=== PATIENT | female | born 1995 | race Asian ===

== ENCOUNTER 2019-03-01 08:09 | Inpatient (IN) ==
--- NOTE | 2019-03-01 09:08 | Emergency Department Note ---
ED Provider Note CHIEF COMPLAINT: Bilateral leg weakness/numbness HISTORY OF PRESENTING ILLNESS: This is a 23-year-old female who presents to the emergency department via EMS with complaint of bilateral leg weakness and numbness. Patient states that she has had pain off and on in the legs for several months, but started having numbness in the legs about a month ago and started having progressive weakness in the legs about a week ago. She states for the past few days she has not been able to walk because of the weakness and has been crawling on the floor to go to the bathroom and has not been leaving her apartment. The patient admits to using whippets, she states that she has been using these off and on for the past 2 years but has been using them more frequently over the past 6 months. She states she uses these 3-4 times a week and uses anywhere from 20-100 at a time. She denies any other recreational drug use. She reports regular alcohol use, noting that she drinks on the weekends and on Tuesday nights and states "I drink until I feel happy." She denies any fevers or chills or feeling ill. She denies any recent illness. She denies any headaches, vision changes, neck pain, back pain, numbness/tingling or weakness of the upper extremities. She denies any chest pain, abdominal pain, shortness of breath, nausea or vomiting, urinary complaints, or unusual rash. She denies any bowel or bladder dysfunction and denies any saddle numbness. She did have similar symptoms at a previous ED visit in October, and reports her symptoms have come and gone since that time but have gotten worse over the past 1 month. REVIEW OF SYSTEMS: A complete 10 point review of systems was reviewed with the patient with pertinent positives and negatives as per history of present illness. All else were negative. PAST MEDICAL HISTORY: History of depression SOCIAL HISTORY: Lives at home, she is a [employer] student, occasional smoker, regular alcohol use, regular use of whippets, denies any other recreational drug use ALLERGIES: No known allergies PHYSICAL EXAM: CONSTITUTIONAL: Pleasant and cooperative. Nontoxic-appearing and in no acute distress. Disheveled and unkempt, dirt on hands, knees, and feet. Mildly dehydrated. HEENT: Normocephalic, atraumatic. PERRL, EOMI with no nystagmus. TMs normal. Pharynx normal. Airway patent. NECK: Supple, full active range of motion without discomfort. No nuchal rigidity or meningismus. No midline tenderness to palpation of the cervical spine. No cervical adenopathy. RESPIRATORY: Clear to auscultation bilaterally with no wheezing, crackles, rhonchi or stridor. Equal expansion bilaterally. CARDIOVASCULAR: Regular rate and rhythm with no murmurs, rubs or gallops. Normal peripheral perfusion. No edema. GASTROINTESTINAL: Soft, nontender, nondistended. No palpable masses or HSM. Bowel sounds present in all quadrants. No CVA tenderness bilaterally. MUSCULOSKELETAL: 5/5 strength in the bilateral upper extremities, sensation intact to light touch throughout the upper extremities. 4/5 strength in the bilateral lower extremities, able to lift legs off of the bed, but poor control of the leg while lifted. Dorsiflexion and plantarflexion intact. No significant muscle spasticity or flaccidity noted. No clonus. Patellar and Achilles deep tendon reflexes 2+ bilaterally. INTEGUMENTARY: No rash or other significant dermatologic conditions noted. NEUROLOGIC: Alert and oriented X 4 with normal affect. Cranial nerves II-XII grossly intact, no facial droop. No pronator drift. Rksfsv-kuja-odxory testing normal. Unable to perform [id number]-id-vukt bilaterally. Unable to assess Romberg due to ataxia. Patient is unable to walk. Normal speech. ED COURSE AND MEDICAL DECISION MAKING: CC: Patient presenting with complaint of bilateral leg weakness/numbness DIFFERENTIAL DIAGNOSIS: Includes, but not limited to spinal cord lesion, cauda equina syndrome, vitamin B12 deficiency, myelopathy, neuropathy, cerebellar mass/lesion, substance abuse, nitrous oxide toxicity, Guillon Marks, among others. INTERPRETATION OF LABS: No leukocytosis, mild anemia, normal platelets, no significant electrolyte abnormalities, elevated BUN with a normal creatinine, normal liver enzymes. Folate within normal limits. TSH within normal limits. Vitamin B12 level is low. Serum negative. Medical alcohol negative. Acetaminophen and salicylate levels negative. Urinalysis and urine drug screen pending. IMAGING: XR chest 1V portable CLINICAL HISTORY: 23 years-old Female presenting with psych eval. TECHNIQUE: Portable upright AP view of the chest was obtained. COMPARISON: None. FINDINGS: Cardiomediastinal silhouette normal. No focal opacity. No large effusion or pneumothorax. Osseous structures normal. Upper abdomen normal. IMPRESSION: 1. No acute cardiopulmonary disease. ----- MR lumbar spine wo con HISTORY: Pain. Neuropathy. bilateral leg weakness and numbness TECHNIQUE: Multiplanar multisequence MRI of the lumbar spine was performed without the use of contrast. COMPARISON: None. FINDINGS: For the purpose of the report the L5-S1 disc space will be located on axial image 23 of 25. Severely limited exam due to patient motion. Unremarkable signal characteristics of the vertebral bodies. Intervertebral discs appear generally well preserved. L1-L2: No significant central canal or neural foraminal narrowing. L2-L3: No significant central canal or neural foraminal narrowing. L3-L4: No significant central canal or neural foraminal narrowing. L4-L5: No significant central canal or neural foraminal narrowing. L5-S1: No significant central canal or neural foraminal narrowing. IMPRESSION: 1. Limited study due to severe patient motion. 2. No significant compromise of the spinal canal or neural foramina. 3. Probable bladder distention EKG: Shows normal sinus rhythm with a rate of 82 bpm, sinus arrhythmia, normal intervals, no ST or T wave abnormalities, no ectopy by my interpretation. No previous EKG available for comparison. MEDICATION RECONCILIATION: I attest that I have personally reviewed the patient's current medication list. INITIAL VITAL SIGNS REVIEW: I reviewed the patient's initial vital signs and interpret them as follows: T: Afebrile; BP: Normotensive; HR: Within normal limits; RR: Within normal limits; Pulse Ox: Within normal limits on room air. Blood pressure screening: The patient was found to have normal blood pressure on screening and does not require follow-up for repeat blood pressure check. MDM SUMMARY: Patient was evaluated at bedside, history and physical exam performed. Patient is alert and oriented, in no acute distress, resting in the stretcher. Patient exhibits bilateral weakness of the lower extremities. She denies any bowel or bladder dysfunction. She reports numbness in both legs, but is able to distinguish laterality to light touch. No saddle numbness. She denies any bowel or bladder dysfunction. She refused rectal exam. I did speak on the phone with [facility], who recommended vitamin B12 and folate levels and an MRI of the lumbar spine given the patient's persistent weakness and numbness with reported ataxia. There is strong concern from the history that the patient has been abusing nitrous oxide, the [facility] was contacted. According to the [facility], chronic abuse of nitrous oxide can cause a myeloneuropathy with symptoms of ataxia, peripheral sensory neuropathy, and weakness of the arms and legs. Additionally, respiratory and hematologic symptoms have been noted, as well as an effect that can cause vitamin B12 deficiency. I do not suspect Guillon Marks syndrome, as the patient's symptoms have been slowly progressing over the course of weeks to months. Orders were placed at bedside for medical clearance labs, folate and vitamin B12 levels, urinalysis and urine drug screen, serum , chest x-ray, MRI of the lumbar spine to evaluate for cauda equina/lumbar spinal cord involvement. Patient discussed with Dr. Fry, who agrees with my assessment, plan, and disposition. Labs and imaging reviewed as above, labs are notable for a mild macrocytic anemia and patient is noted to have vitamin B12 deficiency. Several attempts were made by myself and nursing to assess the patient's ability to walk, she is significantly unstable on her feet and is unable to walk or even stand independently from the stretcher. 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 Given the patient's inability to ambulate safely, I did feel that she warranted admission to the hospital. I spoke with Dr. Houston, neurology, who recommended treatment with vitamin B12 and agrees with admission due to the persistent ataxia and weakness. She also recommended performing additional MR of the cervical and lumbar spine nonco ntrast to rule out any spinal lesions. These were ordered. The patient was consistently unable to provide a urine sample, therefore a villanueva catheter was placed, with subsequent 1800 mL drained. Urine studies are pending. I spoke with Dr. Montano and Dr. Lewis, [facility], who ag atul to evaluate the patient for admission. Dr. Lewis is familiar with the presentation of chronic nitrous oxide use, as there has been a previous patient with similar presentation about [address] Montano requested the MR of the C and T spine studies be changed to with and without contrast, and also requested MR w and w/o of the brain. These were ordered per their request. Patient reassessed multiple times throughout ED stay, she has remained hemodynamically stable, afebrile, and comfortable. The patient was updated on all results and plan for admission, she verbalized understanding and was agreeable to this plan. The patient was stable at time of admission. The chart was completed utilizing [employer] Speech voice recognition software. Grammatical errors, random word insertions, pronoun errors, and incomplete sentences are an occasional consequence of this system due to software limitations, ambient noise, and hardware issues. Any formal questions or concerns about the content, text, or information contained within the body of this dictation should be directly addressed to the nurse practitioner for clarification. Impression & Plan Ataxia, Bilateral leg weakness, Vitamin B 12 deficiency, Nitrous oxide overdose Past Med/Surg History Social History Feels Safe at Home: Yes Smoking Status: Current some day smoker Results & Data Vital Signs Vital Signs - 24 hr 03/01/19 08:20 03/01/19 09:43 03/01/19 10:22 Temperature 37 C Temperature Source Oral Pulse Rate 83 Pulse Rate [Apical] 86 87 Respiratory Rate 20 16 20 Blood Pressure 115/65 Blood Pressure [Left Arm] 99/67 L 117/67 Blood Pressure Mean 81 Blood Pressure Mean [Left Arm] 77 83 Pulse Oximetry 97 100 100 Oxygen Delivery Method Room Air Room Air Room Air Sepsis Recent Fever Within 48 Hours No Sepsis New/Unexplained Change in Mental Status No Sepsis Action Taken by Nursing No Action Required 03/01/19 12:33 03/01/19 14:55 03/01/19 15:42 Temperature Temperature Source Pulse Rate 76 Pulse Rate [Apical] 75 72 Respiratory Rate 20 16 20 Blood Pressure 114/76 Blood Pressure [Left Arm] 99/55 L 91/56 L Blood Pressure Mean 88 Blood Pressure Mean [Left Arm] 69 67 Pulse Oximetry 98 98 99 Oxygen Delivery Method Room Air Room Air Room Air Sepsis Recent Fever Within 48 Hours Sepsis New/Unexplained Change in Mental Status Sepsis Action Taken by Nursing 03/01/19 17:55 Temperature Temperature Source Pulse Rate 100 H Pulse Rate [Apical] Respiratory Rate 20 Blood Pressure 96/78 L Blood Pressure [Left Arm] Blood Pressure Mean 84 Blood Pressure Mean [Left Arm] Pulse Oximetry 98 Oxygen Delivery Method Room Air Sepsis Recent Fever Within 48 Hours Sepsis New/Unexplained Change in Mental Status Sepsis Action Taken by Nursing Laboratory Data Result diagrams: 03/01/19 09:10 03/01/19 09:10 Lab Results 03/01/19 03/01/19 03/01/19 Range/Units 09:10 09:10 09:10 WBC 8.62 (4.8-10.8) K/uL RBC 3.04 L (4.2-5.4) M/uL Hgb 10.7 L (12.0-16.0) g/dL Hct 31.9 L (37-47) % MCV 104.9 H (80-100) fL MCH 35.2 H (25-34) pg MCHC 33.5 (32-36) g/dL RDW Std Deviation 76.3 H (36.4-46.3) fL RDW Coeff of Aria 20.8 H (11.5-14.5) % Plt Count 381 (130-400) K/uL MPV 8.7 (7.4-10.4) fL Immature Gran % (Auto) 0.3 % Neut % (Auto) 71.4 % Lymph % (Auto) 22.4 % [place] % (Auto) 4.9 % Eos % (Auto) 0.9 % Baso % (Auto) 0.1 % Immature Gran # (Auto) 0.03 H (0.00-0.02) K/uL Neut # (Auto) 6.15 (1.4-6.5) K/uL Lymph # (Auto) 1.93 (1.2-3.4) K/uL [place] # (Auto) 0.42 (0.11-0.59) K/uL Eos # (Auto) 0.08 (0-0.5) K/uL Baso # (Auto) 0.01 (0-0.2) K/uL Macrocytosis Present Ovalocytes 1+ Sodium 140 (136-145) mmol/L Potassium 4.3 (3.5-5.1) mmol/L Chloride 109 H (98-107) mmol/L Carbon Dioxide 25 (21-32) mmol/L Anion Gap 6.0 (3-11) BUN 28 H (7-18) mg/dl Creatinine 0.84 (0.6-1.2) mg/dl Est Cr Clr Drug Dosing 111.0 ml/min Est GFR ( Amer) 115.1 Est GFR (Non-Af Amer) 99.4 BUN/Creatinine Ratio 32.6 H (10-20) Glucose 106 H (70-99) mg/dl Calcium 9.6 (8.5-10.1) mg/dl Total Bilirubin 0.6 (0.2-1) mg/dl AST 22 (15-37) U/L ALT 57 (12-78) U/L Alkaline Phosphatase 99 (45-117) U/L Total Protein 7.8 (6.4-8.2) gm/dl Albumin 4.0 (3.4-5.0) gm/dl Globulin 3.8 (2.5-4.0) gm/dl Albumin/Globulin Ratio 1.1 (0.9-2) Vitamin B12 (211-911) pg/ml Folate (>5.38) ng/ml TSH 1.860 (0.300-4.500) uIu/ml HCG, Qual Negative (Negative) Urine Color Urine Appearance (Clear) Urine pH (4.5-7.5) Ur Specific [place] (1.000-1.030) Urine Protein (Negative) Urine Glucose (UA) (Negative) Urine Ketones (Negative) Urine Blood (Negative) Urine Nitrite (Negative) Urine Bilirubin (Negative) Urine Urobilinogen (Negative) Ur Leukocyte Esterase (Negative) Urine WBC (Auto) (0-5) /hpf Urine RBC (Auto) (0-4) /hpf U Hyaline Cast (Auto) (0-5) /lpf U Epithel Cells (Auto) (0-5) /lpf Urine Bacteria (Auto) (Negative) Salicylates (2.8-20) mg/dl Urine Opiates Screen (Neg) Ur Methadone, Qual (Neg) Acetaminophen (10-30) ug/ml Urine Barbiturates (Neg) Ur Phencyclidine (PCP) (Neg) U Amphetamin/Meth Scrn (Neg) MDMA (Ecstasy) Screen (Neg) U Benzodiazepines Scrn (Neg) Ur Cocaine Metabolite (Neg) U Marijuana (THC) Screen (Neg) Ethyl Alcohol mg/dL (0-3) mg/dl 03/01/19 03/01/19 03/01/19 Range/Units 09:10 09:10 09:52 WBC (4.8-10.8) K/uL RBC (4.2-5.4) M/uL Hgb (12.0-16.0) g/dL Hct (37-47) % MCV (80-100) fL MCH (25-34) pg MCHC (32-36) g/dL RDW Std Deviation (36.4-46.3) fL RDW Coeff of Aria (11.5-14.5) % Plt Count (130-400) K/uL MPV (7.4-10.4) fL Immature Gran % (Auto) % Neut % (Auto) % Lymph % (Auto) % [place] % (Auto) % Eos % (Auto) % Baso % (Auto) % Immature Gran # (Auto) (0.00-0.02) K/uL Neut # (Auto) (1.4-6.5) K/uL Lymph # (Auto) (1.2-3.4) K/uL [place] # (Auto) (0.11-0.59) K/uL Eos # (Auto) (0-0.5) K/uL Baso # (Auto) (0-0.2) K/uL Macrocytosis Ovalocytes Sodium (136-145) mmol/L Potassium (3.5-5.1) mmol/L Chloride (98-107) mmol/L Carbon Dioxide (21-32) mmol/L Anion Gap (3-11) BUN (7-18) mg/dl Creatinine (0.6-1.2) mg/dl Est Cr Clr Drug Dosing ml/min Est GFR ( Amer) Est GFR (Non-Af Amer) BUN/Creatinine Ratio (10-20) Glucose (70-99) mg/dl Calcium (8.5-10.1) mg/dl Total Bilirubin (0.2-1) mg/dl AST (15-37) U/L ALT (12-78) U/L Alkaline Phosphatase (45-117) U/L Total Protein (6.4-8.2) gm/dl Albumin (3.4-5.0) gm/dl Globulin (2.5-4.0) gm/dl Albumin/Globulin Ratio (0.9-2) Vitamin B12 147 L (211-911) pg/ml Folate 15.68 (>5.38) ng/ml TSH (0.300-4.500) uIu/ml HCG, Qual (Negative) Urine Color Urine Appearance (Clear) Urine pH (4.5-7.5) Ur Specific [place] (1.000-1.030) Urine Protein (Negative) Urine Glucose (UA) (Negative) Urine Ketones (Negative) Urine Blood (Negative) Urine Nitrite (Negative) Urine Bilirubin (Negative) Urine Urobilinogen (Negative) Ur Leukocyte Esterase (Negative) Urine WBC (Auto) (0-5) /hpf Urine RBC (Auto) (0-4) /hpf U Hyaline Cast (Auto) (0-5) /lpf U Epithel Cells (Auto) (0-5) /lpf Urine Bacteria (Auto) (Negative) Salicylates < 1.7 L (2.8-20) mg/dl Urine Opiates Screen (Neg) Ur Methadone, Qual (Neg) Acetaminophen < 2 L (10-30) ug/ml Urine Barbiturates (Neg) Ur Phencyclidine (PCP) (Neg) U Amphetamin/Meth Scrn (Neg) MDMA (Ecstasy) Screen (Neg) U Benzodiazepines Scrn (Neg) Ur Cocaine Metabolite (Neg) U Marijuana (THC) Screen (Neg) Ethyl Alcohol mg/dL < 3.0 (0-3) mg/dl 03/01/19 03/01/19 Range/Units 16:30 16:30 WBC (4.8-10.8) K/uL RBC (4.2-5.4) M/uL Hgb (12.0-16.0) g/dL Hct (37-47) % MCV (80-100) fL MCH (25-34) pg MCHC (32-36) g/dL RDW Std Deviation (36.4-46.3) fL RDW Coeff of Aria (11.5-14.5) % Plt Count (130-400) K/uL MPV (7.4-10.4) fL Immature Gran % (Auto) % Neut % (Auto) % Lymph % (Auto) % [place] % (Auto) % Eos % (Auto) % Baso % (Auto) % Immature Gran # (Auto) (0.00-0.02) K/uL Neut # (Auto) (1.4-6.5) K/uL Lymph # (Auto) (1.2-3.4) K/uL [place] # (Auto) (0.11-0.59) K/uL Eos # (Auto) (0-0.5) K/uL Baso # (Auto) (0-0.2) K/uL Macrocytosis Ovalocytes Sodium (136-145) mmol/L Potassium (3.5-5.1) mmol/L Chloride (98-107) mmol/L Carbon Dioxide (21-32) mmol/L Anion Gap (3-11) BUN (7-18) mg/dl Creatinine (0.6-1.2) mg/dl Est Cr Clr Drug Dosing ml/min Est GFR ( Amer) Est GFR (Non-Af Amer) BUN/Creatinine Ratio (10-20) Glucose (70-99) mg/dl Calcium (8.5-10.1) mg/dl Total Bilirubin (0.2-1) mg/dl AST (15-37) U/L ALT (12-78) U/L Alkaline Phosphatase (45-117) U/L Total Protein (6.4-8.2) gm/dl Albumin (3.4-5.0) gm/dl Globulin (2.5-4.0) gm/dl Albumin/Globulin Ratio (0.9-2) Vitamin B12 (211-911) pg/ml Folate (>5.38) ng/ml TSH (0.300-4.500) uIu/ml HCG, Qual (Negative) Urine Color Yellow Urine Appearance Clear (Clear) Urine pH 6.5 (4.5-7.5) Ur Specific [place] 1.020 (1.000-1.030) Urine Protein Negative (Negative) Urine Glucose (UA) Negative (Negative) Urine Ketones Negative (Negative) Urine Blood Negative (Negative) Urine Nitrite Positive A (Negative) Urine Bilirubin Negative (Negative) Urine Urobilinogen Negative (Negative) Ur Leukocyte Esterase Negative (Negative) Urine WBC (Auto) 1-5 (0-5) /hpf Urine RBC (Auto) 0-4 (0-4) /hpf U Hyaline Cast (Auto) 0 (0-5) /lpf U Epithel Cells (Auto) 5-10 H (0-5) /lpf Urine Bacteria (Auto) 2+ H (Negative) Salicylates (2.8-20) mg/dl Urine Opiates Screen Neg (Neg) Ur Methadone, Qual Neg (Neg) Acetaminophen (10-30) ug/ml Urine Barbiturates Neg (Neg) Ur Phencyclidine (PCP) Neg (Neg) U Amphetamin/Meth Scrn Neg (Neg) MDMA (Ecstasy) Screen Neg (Neg) U Benzodiazepines Scrn Neg (Neg) Ur Cocaine Metabolite Neg (Neg) U Marijuana (THC) Screen Neg (Neg) Ethyl Alcohol mg/dL (0-3) mg/dl Administered Medications Discontinued Medications Cyanocobalamin (Vitamin B-12) 1,000 mcg IM ONE STA Stop: 03/01/19 15:42 Last Admin: 03/01/19 16:04 Dose: 1,000 mcg Documented by: [id number] Sodium Chloride (Nss 1000ml) 1,000 mls @ 999 mls/hr IV .[id number] ONE Stop: 03/01/19 10:29 Last Infusion: 03/01/19 10:49 Dose: 0 mls/hr Documented by: [id number] Admin: 03/01/19 09:48 Dose: 999 mls/hr Documented by: [id number] Discharge Plan Visit Data Chief Complaint: Neuro Symptoms/Deficit Stated Complaint: lower legs/numbness ED Provider: Aidee Fry ED Midlevel Provider: Kathy Carroll Discharge Problem: Ataxia, Bilateral leg weakness, Vitamin B 12 deficiency, Nitrous oxide overdose Patient Disposition: Admitted As Inpatient Condition: Good Forms Stand Alone Forms: [facility], Important Visit Information Prescriptions Prescriptions: No Action No Known Home Medications RF: 0 Referrals Referrals: [facility] [Primary Care Provider] - Discharge Problem: Nitrous oxide overdose Qualifiers: Encounter type: initial encounter Injury intent: undetermined intent Qualified Code(s): T41.0X4A - Poisoning by inhaled anesthetics, undetermined, initial encounter
[2019-03-01 09:27] LABS: Basophils # (auto) 0.01 K/uL (0-0.2); Basophils % (auto) 0.1 %; Eosinophils # (auto) 0.08 K/uL (0-0.5); Eosinophils % (auto) 0.9 %; Hematocrit (blood only) 31.9 % (37-47); Hemoglobin 10.7 g/dL (12.0-16.0); Immature Granulocytes # (auto) 0.03 K/uL (0.00-0.02); Immature Granulocytes % (auto) 0.3 %; Lymphocytes # (auto) 1.93 K/uL (1.2-3.4); Lymphocytes % (auto) 22.4 %; Mean Corpuscular Hemoglobin 35.2 pg (25-34); Mean Corpuscular Hgb Conc 33.5 g/dL (32-36); Mean Corpuscular Volume 104.9 fL (80-100); Mean Platelet Volume 8.7 fL (7.4-10.4); Monocytes # (auto) 0.42 K/uL (0.11-0.59); Monocytes % (auto) 4.9 %; Neutrophils # (auto) 6.15 K/uL (1.4-6.5); Neutrophils % (auto) 71.4 %; Platelet Count 381 K/uL (130-400); RDW Coefficient of Variation 20.8 % (11.5-14.5); RDW Standard Deviation 76.3 fL (36.4-46.3); Red Blood Count 3.04 M/uL (4.2-5.4); White Blood Count 8.62 K/uL (4.8-10.8)
[2019-03-01] MEDS ORDERED: SODIUM CHLORIDE 0.9% 1000ML 1,000 ML IV ONE (09:29)
[2019-03-01 09:46] LABS: BUN Creatinine Ratio 32.6 (10-20); Calcium 9.6 mg/dl (8.5-10.1); Est GFR (African American) 115.1; Est GFR (Non-African American) 99.4; Potassium 4.3 mmol/L (3.5-5.1)
[2019-03-01 09:47] LABS: Macrocytosis Present; Ovalocytes 1+
--- NOTE | 2019-03-01 09:47 | XRay Report ---
XR chest 1V portable CLINICAL HISTORY: 23 years-old Female presenting with psych eval. TECHNIQUE: Portable upright AP view of the chest was obtained. COMPARISON: None. FINDINGS: Cardiomediastinal silhouette normal. No focal opacity. No large effusion or pneumothorax. Osseous str uctures normal. Upper abdomen normal. IMPRESSION: 1. No acute cardiopulmonary disease. Electronically signed by: Ruben Huddleston M.D. 03/01/2019 9:46 AM
[2019-03-01 09:50] LABS: Pregnancy Test, Serum Negative (Negative)
[2019-03-01 09:56] LABS: Albumin Globulin Ratio 1.1 (0.9-2); Bilirubin,Total 0.6 mg/dl (0.2-1); Globulin 3.8 gm/dl (2.5-4.0); Thyroid Stimulating Hormone 1.86 uIu/ml (0.300-4.500); Total Protein 7.8 gm/dl (6.4-8.2)
[2019-03-01 10:13] LABS: Acetaminophen < 2 ug/ml (10-30); Salicylate < 1.7 mg/dl (2.8-20)
[2019-03-01 10:38] LABS: Folate (Folic Acid) 15.68 ng/ml (>5.38)
--- NOTE | 2019-03-01 12:24 | Magnetic Resonance Report ---
MR lumbar spine wo con HISTORY: Pain. Neuropathy. bilateral leg weakness and numbness TECHNIQUE: Multiplanar multisequence MRI of the lumbar spine was performed without the use of contras t. COMPARISON: None. FINDINGS: For the purpose of the report the L5-S1 disc space will be located on axial image 23 of 25. Severely limited exam due to patient motion. Unremarkable signal characteristics of the vertebral bod ies. Intervertebral discs appear generally well preserved. L1-L2: No significant central canal or neural foraminal narrowing. L2-L3: No significant central canal or neural foraminal narrowing. L3-L4: No significant central canal or neural foraminal narrowing. L4-L5: No significant central canal or neural foraminal narrowing. L5-S1: No significant central canal or neural foraminal narrowing. IMPRESSION: 1. Limited study due to severe patient motion. 2. No significant compromise of the spinal canal or neural foramina. 3. Probable bladder distention The above report was generated using voice recognition software. It may contain grammatical, syntax or spelling errors. Electronically signed by: Tushar Mon M.D. 03/01/2019 12:23 PM
[2019-03-01] MEDS ORDERED: CYANOCOBALAMIN 1000 MCG/ML VIAL IM STA (15:41)
[2019-03-01 17:09] LABS: Appearance Urine Clear (Clear); Bacteria Urine Automated 2+ (Negative); Bilirubin Urine Negative (Negative); Blood Urine Negative (Negative); Cast Urine Automated 0 /lpf (0-5); Color Urine Yellow; Glucose Urine UA Negative (Negative); Ketones Urine Negative (Negative); Leukocyte Esterase Urine Negative (Negative); Nitrite Urine Positive (Negative); Protein Urine Negative (Negative); RBC Urine Automated 0-4 /hpf (0-4); Urobilinogen Urine Negative (Negative); pH Urine 6.5 (4.5-7.5)
[2019-03-01] MEDS ORDERED: MAGNESIUM HYDROXIDE SUSP 30 ML UDC PO PRN (18:00)
[2019-03-01] MEDS ORDERED: ZOLPIDEM TARTRATE 5 MG TAB PO PRN (18:00)
[2019-03-01] MEDS ORDERED: ONDANSETRON INJ 2 MG/ML 2 ML VIAL IV PRN (18:00)
[2019-03-01] MEDS ORDERED: ACETAMINOPHEN 325 MG TAB PO PRN (18:00)
[2019-03-01] MEDS ORDERED: POLYETHYLENE (MIRALAX) 17 GM PACK PO PRN (18:00)
[2019-03-01] MEDS ORDERED: ALUMINUM/MAGNESIUM SUSP 30 ML UDC PO PRN (18:00)
[2019-03-01 18:05] LABS: Amphetamines+Metham, Urine Neg (Neg); Barbiturates, Urine Neg (Neg); Benzodiazepine, Urine Neg (Neg); Cocaine, Urine Neg (Neg); MDMA (Ecstacy), Urine Neg (Neg); Methadone, Urine Neg (Neg); Opiate, Urine Neg (Neg); Phencyclidine, Urine Neg (Neg)
[2019-03-01] MEDS ORDERED: THIAMINE HCL 100 MG/ML 2 ML VIAL ONE (19:10)
[2019-03-01] MEDS ORDERED: THIAMINE HCL 200 MG in SODIUM CHLORIDE 0.9% 50 ML IV SCH (20:00)
[2019-03-01] MEDS: ENOXAPARIN INJ 40 MG/0.4 ML SYR SQ SCH (21:07)
[2019-03-01] MEDS: NSS + 20MEQ KCL 20 MEQ/1,000 ML BAG IV SCH (21:08)
--- NOTE | 2019-03-01 21:25 | History & Physical Report ---
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 Vitamin B12 injection 1000 mg IM daily Counseled regarding nitrous oxide addiction, she is adamant that she will never use that again Neurologist consult MRI with gadolinium to rule out any other condition (2) Vitamin B 12 deficiency: Replaced as mentioned above (3) Bilateral leg weakness: Physical therapy/Occupational Therapy (4) Alcohol abuse: Admit to telemetry IV fluid hydration Thiamine IV Ativan as needed withdrawal symptoms. History of Present Illness Chief Complaint: Lower extremity weakness Primary Care Provider: [facility] 23 years old female with no significant past medical history was brought to the ED by EMS complaining of bilateral lower extremity weakness. Patient appears to be dissociated from reality despite of her high academic achievement as a student in [employer] she is in her last year of college. I was surprised with her lack of concerned about her lower extremity weakness that developed very slowly over a period of few months. Patient admitted to [facility] on and off for the last 2 years. Stated that she was introduced to the substance by her friend after she was depressed when she broke up with her boyfriend. Also admitted to drinking alcohol at least 3 times to 4 times a week. She stated that few months ago she started having numbness in hands both lower extremities that slowly progressed to weakness. The amount of 4 beats she admitted to take is about 3 to 5 boxes/day, every box contains about 24 can. She stated that she stopped using it about 2 weeks ago, but paramedics stated that her apartment was full of what pets around her. Her initial lumbar MRI was within normal limits. Vitamin B12 level was 147, her MCV was elevated and hemoglobin was low indicating severe vitamin B12 deficiency. Poison control was called and recommended vitamin B12 replacement Allergies Allergy/AdvReac Type Severity Reaction Status Date / Time No Known Allergies Allergy Unverified 03/01/19 08:52 Home Medications Home Medications Medication Instructions Recorded Confirmed Type No Known Home Medications 11/08/18 03/01/19 History Past Med/Surg History Social History Preferred Language: Trinidadian Communication Ability: Effective Back Shoe Operator Required: No Beliefs That Will Affect Care: None Current Living Situation: Other Current Living Situation Comment: with room mate in college Other Information That Helps Us Care for You: No Feels Safe at Home: Yes Safety Concerns: Feels Safe At This Time Smoking Status: Former smoker Hx Alcohol Use: Yes Alcohol type: wine and hard liquor Hx Substance Use: Yes substance use type: other Substance Use Type Other:: whippets Last Used Substance Other:: 2-3x/week. 5 boxes each time. Review of Systems Review of Systems: Review of system Constitutional: No fever / no chills / no sweats / no weakness / no fatigue Eyes: no blurring of vision / no eye pain / no discharge / no redness ENT: no hearing loss / no epistaxis /no swallowing problems Respiratory: no cough / no wheezing / no SOB / no hemoptysis Cardiovascular: no Chest pain / no lower extremity edema / no palpitation Abdomen: no pain / no nausea / no vomiting / no constipation Musculoskeletal: no joint pain / no muscle pain / no joint swelling Genitourinary: no dysuria / no incontinence / no urinary retention Neurologic: Severe weakness and numbness in both lower extremities again he has please Psychiatric: no depression symptoms / no anxiety / no insomnia Endocrine: no excessive thirst / no excessive urination Hematologic: no abnormal bleeding / no bruising / no LN swelling Skin: No rash / no pallor Physical Exam Physical Exam: Physical examination General surprisingly appears to be calm patient appears to be comfortable, not in acute distress HEENT: Atraumatic , normocephalic /no jaundice /no pallor /anicteric /no dry mucous membrane /normal external ear inspection Neck: Supple /no swelling /central trach Heart: S1/S2 normal/regular rate and rhythm/no gallop /no rub /no murmur Lungs: Clear to auscultation bilaterally/normal chest with expansion/no rhonch i/no rales/no wheezing/no use of accessory muscles of respiration Abdomen: Soft/nontender/no guarding/no rebound/no organomegaly/no pulsatile mass Musculoskeletal: No swelling/no edema/no tenderness/normal range of motion Neuro exam: Awake alert oriented 3/cranial nerves II through XII appear to be intact/sensation intact but she said that is slightly numb in her both feet/very ataxic, reflexes are decreased, severe cerebellar extrapyramidal symptoms, strength in lower extremities is 2/5 Psychiatric evaluation: No depressed mood/normal affect Skin: No rash on exposed skin area/no erythema Extremity: Normal pulse/no pitting edema/no clubbing or cyanosis Endocrine/lymphatic: No obvious lymphadenopathy /no lymphedema Results & Data Vital Signs (Past 12 Hours) Vital Signs Temp Pulse Pulse Resp BP BP Pulse Ox 03/01/19 19:41 36.8 C 79 12 115/76 100 03/01/19 19:09 82 16 99/60 L 98 03/01/19 17:55 100 H 20 96/78 L 98 03/01/19 15:42 76 20 114/76 99 03/01/19 14:55 72 16 91/56 L 98 03/01/19 12:33 75 20 99/55 L 98 03/01/19 10:22 87 20 117/67 100 03/01/19 09:43 86 16 99/67 L 100 Code Status & VTE Plan Code Status Patient is full code VTE Prophylaxis Plan VTE Prophylaxis will be ordered: Yes PG Care Time/CCT Total # of Minutes Spent Total Time Spent with Patient: 35 minutes total time spent is greater than 50% in coordination of care (as documented) at patient's floor/unit and/or couns [facility] patient/family discussion of care with nursing staff (1) Nitrous oxide overdose Encounter type: initial encounter Injury intent: undetermined intent Qualified Code(s): T41.0X4A - Poisoning by inhaled anesthetics, undetermined, initial encounter
[2019-03-01] MEDS ORDERED: LORazepam 1 MG/2 ML VIAL IV PRN (21:50)
[2019-03-02] MEDS ORDERED: GADOBUTROL 65ML VIAL IV PRN (00:01)
[2019-03-02] MEDS: CYANOCOBALAMIN 1000 MCG/ML VIAL IM SCH ×2 (00:36→08:30)
--- NOTE | 2019-03-02 06:36 | Magnetic Resonance Report ---
MRI OF THE BRAIN WITHOUT AND WITH IV CONTRAST CLINICAL HISTORY: bilat leg weakness/numbness COMPARISON STUDY: No previous studies for comparison. TECHNIQUE: MRI of the brain was performed from the vertex to the skull base utilizing various T1 and T2 weighted sequences. Following the IV administration of 6.5 mL of Gadavist contrast, additional enh anced images were obtained. FINDINGS: Sagittal T1, axial diffusion, proton density and T2 weighted axial, coronal FLAIR, and pre and post a xial T1-weighted images were acquired. These were supplemented with post gadolinium coronal T1 weight ed images. No intra or extra-axial mass lesions are visualized. Axial diffusion-weighted images reveal no evidence of acute or subacute infarction. There is no evidence of ventricular dilatation. Proton density T2-weighted and FLAIR images reveal a single 3 mm focus of increased T2 signal within the right frontal white matter abutting the external capsule There are no abnormal flow voids. There is no evidence of pathologic enhancement. IMPRESSION: 1. No acute intracranial findings 2. No evidence of acute or subacute infarction 3. No evidence of intracranial mass 4. Single nonspecific 3 mm focus of increased T2 signal within the right frontal white matter abuttin g the external capsule Electronically signed by: Keagan Dover M.D. 03/02/2019 6:33 AM
--- NOTE | 2019-03-02 07:00 | Magnetic Resonance Report ---
MR cervical spine wo/w con HISTORY: Pain. Neuropathy. bilat leg weakness/numbness TECHNIQUE: Multiplanar multisequence MRI of the cervical spine was performed both before and after th e use of intravenous contrast. COMPARISON STUDY: None. FINDINGS: Signal characteristics of the vertebral bodies as well as intervertebral disc appear unrema rkable. Moderate increase in central aspect of the cervical cord signal from C2 through C6. Diagnostic considerations include diffuse myelomalacia, metabolic insufficiency, versus a atypical de myelinating disorder. Postcontrast images are nondiagnostic due to patient motion. There are slight disc bulges at virtually all levels of the cervical region. IMPRESSION: 1. Multilevel slight disc bulges. 2. Increase of the signal of the central canal from C2 through C6. 3. Diagnostic considerations include diffuse myelomalacia, metabolic insufficiency/abnormality, versu s atypical demyelinating disorder. The above report was generated using voice recognition software. It may contain grammatical, syntax or spelling errors. Electronically signed by: Tushar Mon M.D. 03/02/2019 6:59 AM
--- NOTE | 2019-03-02 07:19 | Magnetic Resonance Report ---
THORACIC SPINE MRI WITH AND WITHOUT CONTRAST HISTORY: bilat leg weakness/numbness TECHNIQUE: Multiplanar multisequence MRI of the thoracic spine was performed both before and after th e intravenous administration of contrast. COMPARISON: None. FINDINGS: Mild motion artifact. Alignment and curvature are intact. No fracture or subluxation. No significant central canal or neural foraminal narrowing. The thoracic spinal cord is normal in course, caliber, a nd signal intensity. No epidural or paraspinal masses. No abnormal enhancement within the thoracic sp ine. IMPRESSION: Mild motion artifact. No significant abnormality within the thoracic spine. Electronically signed by: Roscoe Marquez M.D. 03/02/2019 7:22 AM
[2019-03-02] MEDS: NSS + 20MEQ KCL 20 MEQ/1,000 ML BAG IV SCH (12:24)
--- NOTE | 2019-03-02 18:17 | Medical Student Progress Note ---
Date of Service March 02, 2019 Assessment & Plan (1) Vitamin B 12 deficiency: neurology consult Injectable IV- transition to oral + injectable in future Close follow up with [facility] Fall risk protocols consider physical therapy monitor Hbg 5/8 SIGECAPS screen + depressed mood Case management to asses therapy options Cervical spine MRI increased signal likely related consider acute or sub acute spinal shock Vs chronic damage clinically symptoms match dorsal/lateral cord damage Macrocytic Anemia likely due to B12 deficiency as well Supervising Attestation I personally examined the patient and verified all childs points of history and exam, discussed case, and agree with decision making with Anita MCNEAL. Feeling about the same. Legs still weak. Fortunately no new complaints otherwise. Educated patient extensively on the connection between her nitrous abuse, her acute B12 deficiency and demyelination, and her current symptoms. She expressed good understanding. She had also expressed to MS2 some rather significant depressive symptoms without suicidality, we discussed this further, and trying to for empathy and support as well as trying to start to craft a plan. For this she seems a little less open. She did ask about having a note for her family saying that she is in the hospital so that they can apply for an emergency visa. Vitals noted, in general she is awake and alert pleasant no distress. Legs are weak. Breathing unlabored no accessory muscle use good effort. Skin shows no rashes no pallor or icterus. Her nails are a little bit unkempt. Cranial nerves II through XII are grossly intact, but as far as motor and sensory she definitely shows lower extremity findings as above. Acute demyelinating appearing neuropathyfrom profound B12 deficiency, made worse by the inactivation of the B12 that she has, brought on by nitrous oxide ingestions chronically. Supportive care, PT/OT eval and treat, aggressive vitamin B12 supplementation, time. Educated extensively on the connection betwe en nitrous abuse and her clinical presentation, as I have unfortunately seen almost exactly the same thing before with similar levels of nitrous abuse. She also fits quite well with what is seen in the literature. Alcohol abuseseems to be fairly mildchange thiamine to oral. Supplement with an oral multivitamin as well. Seems to be much more in line with a college student binge drinking, that while episodically is dangerous, does not seem to have the chronicity to lead to alcoholism type problems at this time. DepressionI suspect both her nitrous abuse and her alcohol abuse relate to a depression. We started to discuss this to a degree, she is somewhat open but not entirely so. As we continue to develop rapport hopefully we can discuss this further and start to develop a plan she is comfortable with. Dispositionobviously she will need to be in the hospital until she is safe and stable on her feet, but she does appear stable for transfer to medical. Alcon Kumar is a 23year old non-vegan female who is being treated for a B12 deficiency secondarily to Nitrous Oxide abuse. She states that she feels numbness in the feet, legs, and hands. This feels about the same as it did yesterday. It is not associated with burning, tingling, difficulty thinking or concentrating, or appetite changes. She does progressive falls as her numbness spread. She states she would fall suddenly or hit her anton while walking, rather than lower herself down castelan slowly, but states she has never hit her head. On further questioning of social history it seems that feelings of sadness underlays much of her use. She states she was sad at the time she started using about 2 years ago and has been using off and on ever since. She states that the most she will use at once is 10boxes or 24cartridges and the average per day is about 5boxes. She says that she is often stressed by school and has frequent feeling of guilt over academics, periods of increased and decreased appetite compared to her baseline, feels restless/the need to move, and her friends have mentioned to her that she is distancing herself. She states that she uses NO when alone, and often feels even more sad directly afterwards. She has never sought help or had any psych diagnosis in the past. She has no SI/HI, no previous cutting/suicidal attempts. She is agreeable to seeing a therapist/seeking help in the future. She does not have solid support in [place], but sights close relationship with family who is in [place]. Additionally, she admits to binge drinking alcohol. She only drinks shots, no beer or mixed drinks. She states that 10-12 shots is the most she consumes at one time, usually on Tuesday's. She states she has never blacked out, or tried to quit. Pt expresses concerns today regarding application for emergency Visa for parents who are in [place]. She might need proof of hospitalization for process. Review of Systems Constitutional: + weight gain (15+ lbs over one month estimated) Respiratory: no cough, no dyspnea and no pain on inspiration Cardiovascular: no chest pain and no palpitations Gastrointestinal: no constipation and no diarrhea/loose stools Genitourinary: no urinary frequency and no urinary incontinence No burning on urination Neurologic: + localized weakness (Her legs feel week to the point of being unable to walk) and + loss of sensation; no abnormal speech, no behavioral changes and no confusion Additional as per HPI Psychiatric: As per HPI Physical Exam Constitutional: Seated in bed Respiratory: normal respiratory effort, lungs clear to auscultation Cardiovascular: RRR, no murmur, no edema Skin: Bruising on on shins. Obvious dirt on feet, knees, and hands Neurologic: CN's II-XI intact bilaterally Speech / Cognition: normal speech Motor/Sensory: + sensory deficit (Diminished light touch, sharpVsdull, vib/prob. lower>upper, distal>proximal) Coordination: + abnormal [id number]-[id number] test and + abnormal [id number] test (unable to preform due to weakness); normal rapid alternating movements Psychiatric: Orientation: oriented x 3 Apperance: + disheveled Eye Contact: + fair eye contact Motor Behavior: + psychomotor agitation Speech: normal rate/rhythm/volume of speech Affect: + constricted affect (less concerned than expected) Mood: + depressed mood Thought Process: linear/logical thought process Thought Content: no obsessions and no self deprecation Suicidal Thoughts: denies suicidal thoughts and denies suicidal intent Homicidal Thoughts: denies homicidal thoughts and denies homicidal intent Cognition: recent memory grossly intact, remote memory grossly intact and attention grossly intact Estimated Intelligence: consistent with education level Insight: + limited insight (as evidenced by lower concern for current situation) Judgement: + limited judgement (as evidenced by not wanting more medical/therapy but willingness to accept) Results & Data Vital Signs (Past 12 Hours) Vital Signs Temp Pulse Pulse Resp BP Pulse Ox 03/02/19 15:49 75 03/02/19 15:25 36.7 C 80 19 106/52 L 95 03/02/19 11:48 36.7 C 92 H 24 108/59 L 97 03/02/19 08:00 87 03/02/19 07:00 36.8 C 89 16 113/55 L 98
--- NOTE | 2019-03-02 18:58 | Neurology Consultation ---
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 # BLE numbness/tingling: most likely 2/2 subacute combined degeneration of the spinal cord in the setting of NO abuse/B12 deficiency. MRI brain does not show any signs of MS/demyelinating disorder. Slowly progressive lesion over several months would be more c/w SACD, much less likely NMO or MS. - discussed with her the potential prognosis - continue B12 IM 1000mcg daily x 2 weeks, then transition to PO - encouraged cessation of whippits - PT/OT eval, will likely need rehabilitation upon discharge - given high cord lesions, monitor for dysautonomia - no need for LP at this time, would recommend sending serum NMO antibody (aquaporin 4 antibody) Thank you for this interesting consult. We will continue to follow. Please call or text with questions. (2) Vitamin B 12 deficiency: (3) Poisoning by nitrous oxide: History of Present Illness Attending Physician: Gianfranco Lewis DO History of Present Illness Fatmata Gomez is a 23 yo woman w/ no significant PMH who presents to [facility] after inability to ambulate and numbness in BLEs/trunk and hands. She reports that she was in her normal state of health until about one month ago when she noticed slowly progressive onset of numbness in her hands and feet (per review of record though, it appears that the feet numbness was present in October 2018 ED visit). This progressed slowly up her legs and she started to notice difficulty with walking, causing her to have several falls, within the past 1 week, prompting her to call EMS and present to the ED on 03/01. In the ED, she was found to be unable to ambulate. She had urinary retention and villanueva was placed. Independent review of MRI C/T/L spine was performed and notable for extensive T2 hyperintensity from C2-C7 with mild degenerative changes at other levels but no significant canal or neuroforaminal stenosis. Labs were notable for macrocytic anemia, Plts 381, glucose 106, normal CMP other than elevated BUN 28, normal TSH, normal folate and low B12 147. UDS negative, UA + for nitrites and bacteria but no WBCs or leuk esterase. On examination today, she was unable to elevate her BLEs antigravity more than briefly. She did admit to using whipits several times per week for the past few months. She also reports alcohol on weekends and was smoking prior to coming to the hospital. She endorsed saddle anesthesia but denied urinary/bowel retention. Allergies Allergy/AdvReac Type Severity Reaction Status Date / Time No Known Allergies Allergy Unverified 03/01/19 08:52 Home Medications Home Medications Medication Instructions Recorded Confirmed Type No Known Home Medications 11/08/18 03/01/19 History Patient History Medical History No pertinent past medical history Surgical History No pertinent past surgical history Social History Preferred Language: Tajik Communication Ability: Effective Tire Design Engineer Required: No Beliefs That Will Affect Care: None Current Living Situation: Other Current Living Situation Comment: with room mate in [place] Other Information That Helps Us Care for You: No Feels Safe at Home: Yes Safety Concerns: Feels Safe At This Time Smoking Status: Former smoker Hx Alcohol Use: Yes Alcohol type: wine and hard liquor Hx Substance Use: Yes substance use type: other Substance Use Type Other:: whippets Last Used Substance Other:: 2-3x/week. 5 boxes each time. Review of Systems Review of Systems: 14 point review of systems completed and negative except as in HPI. Physical Exam Physical Exam: General Exam: GEN: NAD, lying in bed. HEENT: No conjunctival injection, no rhinorrhea. CV: RRR, no peripheral edema PULM: Nonlabored respirations on room air. Neuro Exam: MS: Awake and Alert. Oriented to person, place, and date. Speech fluent and appropriate without dysarthria or paraphasic errors. Language intact including naming, comprehension, repetition. Cognition and memory grossly intact. Attention intact. No neglect. CN: Visual flaherty full. No extinction to double simultaneous stimuli. No optic disc edema on fundoscopic exam. PERRLA OU. EOMI without nystagmus. Facial sensation intact to LT. Facial muscles full and symmetric. Hearing intact to c onversation. Uvula midline with symmetric palatal elevation. Shoulder shrug normal. Tongue midline. MOTOR: Normal bulk and tone. No pronator drift. BUE strength 5/5 at deltoids, biceps, triceps, wrist flexors and extensors, and hand grasp bilaterally. BLE strength 3/5 at iliopsoas, 4-/5 hamstrings, 4-/5 quadriceps, 3 to 4-/5 tibialis anterior, and 4-/5 gastrocnemius bilaterally. REFLEXES: 1+ at biceps, triceps, brachioradialis, absent patella and absent Achilles bilaterally. Flexor plantar responses bilaterally. SENSORY: Intact to LT without extinction to double simultaneous stimuli. Decreased vibration in BLEs up to the thighs, normal in BUEs. Normal temperature throughout. COORDINATION: No dysmetria or ataxia on [id number] bilaterally. Normal Jamilah bilaterally. GAIT: deferred given spinal cord lesion Results & Data Vital Signs (Past 12 Hours) Vital Signs Temp Pulse Pulse Resp BP Pulse Ox 03/02/19 15:49 75 03/02/19 15:25 36.7 C 80 19 106/52 L 95 03/02/19 11:48 36.7 C 92 H 24 108/59 L 97 03/02/19 08:00 87 03/02/19 07:00 36.8 C 89 16 113/55 L 98 PG Care Time/CCT Total # of Minutes Spent Total Time Spent with Patient: Total time spent is greater than 50% in coordination of care (as documented) at patient's floor/unit and/or counseling patient:
--- NOTE | 2019-03-02 18:58 | Billing Data ---
Date of Service March 02, 2019 Coding Level of Care Code 64158 Subseq Hosp Care Lvl 3
[2019-03-02] MEDS: ENOXAPARIN INJ 40 MG/0.4 ML SYR SQ SCH (20:07)
[2019-03-03] MEDS: NSS + 20MEQ KCL 20 MEQ/1,000 ML BAG IV SCH ×2 (00:32→12:52)
--- NOTE | 2019-03-03 06:59 | Hospitalist Progress Note ---
Date of Service March 03, 2019 Assessment & Plan (1) Bilateral leg weakness: Stacy is an otherwise well 23 yo female who was admitted on 03/01/19 for evaluation of inability to ambulate and bilateral lower extremity paresthesias. Bilateral leg weakness - likely secondary to chronic nitrous oxide (whippit) use and subsequent depletion of Vitamin B12 stores - brain MRI showing no brain lesions but demyelinating lesion of spinal cord; neurology consulted; appreciate recs - exam has improved since arrival (strength and sensation) - counseled patient to abstain from further nitrous oxide use - supplementing Vitamin B12 with 1,000mcg, IM daily doses x2 weeks after which time we will switch to PO - PT/OT ordered; reiterated importance of participation with patient - she will follow up with neurology as an outpatient in 4-6 weeks Vitamin B12 deficiency - level 147 on admission - supplementation as above Macrocytic Anemia -Hgb 10.7, MCV 104.9 on admission -likely secondary to vitamin B 12 deficiency; supplementation as above Alcohol Use Disorder -counseled patient to minimize ETOH consumption -supplementing with thiamine Dispo: PCU to med/surg today Diet: regular DVT PPx: lovenox 40mg, SQ, daily; bilateral SCDs ordered Code: FULL code (2) Ataxia: (3) Nitrous oxide overdose: (4) Macrocytic anemia with vitamin B12 deficiency: (5) Alcohol abuse: Supervising Physician Co-Signing Physician Notes I personally examined the patient and verified all childs points of history and exam, discussed case, and agree with decision making with Dr Long. Feeling about the same. No new changes. Fairly sleepy at the time of my exam. No complaints. Case discussed with Dr. Long extensively. Vitals noted, in general she is in no distress. HEENT normocephalic atraumatic mucous membranes are moist. Breathing is unlabored no accessory muscle use good effort. Skin shows no rashes no pallor or icterus. Weakness/ataxia/nitrous oxide-induced B12 deficiency mediated spinal cord degenerationcontinue B12 supplementation and nitrous cessation, PT/OT eval and treat Macrocytic anemiarelated to B12 as as abovecontinue to supplement B12. Stable from medical Subjective No acute events overnight. Feels about the same as yesterday. She is not in any pain. Eating and drinking. Did not participate in PT yesterday Review of Systems Review of Systems: All systems reviewed & are unremarkable except as noted in HPI & below Physical Exam Constitutional: WD/WN, vitals as above + language barrier and + disheveled; + not well groomed Eyes: PERRL, conjunctivae normal, anicteric sclerae EOM intact bilaterally (without nystagmus) ENMT: external ear and nose normal, oropharynx normal Neck: normal visual inspection Respiratory: normal respiratory effort, lungs clear to auscultation Auscultation: no crackles, no rales, no rhonchi and no wheezes Cardiovascular: RRR, no murmur, no edema Heart Sounds: normal S1 and normal S2 Gastrointestinal (Abdomen): normal bowel sounds, soft, nontender, no hepatosplenomegaly Skin: no rashes, warm and dry Neurologic: CN's II-XI intact bilaterally Speech / Cognition: normal speech Coordination: normal [id number] test and normal rapid alternating movements Sensation intact to gross touch in bilateral upper and lower extremities. Vibratory sensation not tested. Muscle tone and bulk normal throughout. Strength 5/5 in triceps, biceps, wrist extension and flexion, finger abduction, and data management manager in bilateral upper extremities. 4/5 with ankle plantar and dorsiflexion, quadriceps extension, hamstring flexion in bilateral lower extremities. Vibratory sensation not tested. Gait not tested. Psychiatric: Orientation: oriented x 3 drowsy throughout encounter Results & Data Vital Signs (Past 12 Hours) Vital Signs Temp Pulse Resp BP Pulse Ox 03/03/19 03:22 36.6 C 68 16 109/66 98 03/03/19 00:35 36.8 C 71 20 104/61 98 Resident Activity Tracking Resident Involvement: Resident Care Provided Care Provided: Adult Hospital Medicine (1) Nitrous oxide overdose Encounter type: initial encounter Injury intent: undetermined intent Qualified Code(s): T41.0X4A - Poisoning by inhaled anesthetics, undetermined, initial encounter
[2019-03-03] MEDS: MULTIVITAMIN TAB PO SCH (08:10)
[2019-03-03] MEDS: THIAMINE HCL 100 MG TAB PO SCH (08:10)
[2019-03-03] MEDS: CYANOCOBALAMIN 1000 MCG/ML VIAL IM SCH (08:10)
--- NOTE | 2019-03-03 09:32 | Neurology Progress Note ---
Date of Service March 03, 2019 Assessment & Plan (1) Subacute combined degeneration of spinal cord: Fatmata Gomez is a 23 yo woman w/ no significant PMH who presents to [facility] after inability to ambulate and numbness in BLEs/trunk and hands. # BLE numbness/tingling: most likely 2/2 subacute combined degeneration of the spinal cord in the setting of NO abuse/B12 deficiency. MRI brain does not show any signs of MS/demyelinating disorder. Slowly progressive lesion over several months would be more c/w SACD, much less likely NMO or MS. - discussed with her the potential prognosis - continue B12 IM 1000mcg daily x 2 weeks, then transition to PO - encouraged cessation of whippits, she endorsed understanding - PT/OT eval, will likely need rehabilitation upon discharge - given high cord lesions, monitor for dysautonomia - no need for LP at this time, would recommend sending serum NMO antibody (aquaporin 4 antibody) - neurology follow up in 4-6 weeks Thank you for this interesting consult. We will sign off at this time. Please call or text with questions. Subjective NAEs overnight. Watching tv on coming in, reports ate breakfast well. Had more questions about prognosis today. Still unable to void or ambulate. Reports numbness is still present in BLEs moreso than her hands. Review of Systems Review of Systems: 14 point review of systems completed and negative except as in HPI. Physical Exam Physical Exam: General Exam: GEN: NAD, lying in bed. HEENT: No conjunctival injection, no rhinorrhea. CV: RRR, no peripheral edema PULM: Nonlabored respirations on room air. Neuro Exam: MS: Awake and Alert. Oriented to person, place, and date. Speech fluent and appropriate without dysarthria or paraphasic errors. Language intact including naming, comprehension, repetition. Cognition and memory grossly intact. Attention intact. No neglect. CN: Visual flaherty full. No extinction to double simultaneous stimuli. No optic disc edema on fundoscopic exam. PERRLA OU. EOMI without nystagmus. Facial sensation intact to LT. Facial muscles full and symmetric. Hearing intact to conversation. Uvula midline with symmetric palatal elevation. Shoulder shrug normal. Tongue midline. MOTOR: Normal bulk and tone. No pronator drift. BUE strength 5/5 at deltoids, biceps, triceps, wrist flexors and extensors, and hand grasp bilaterally. BLE strength 4-/5 at iliopsoas, 4/5 hamstrings, 4/5 quadriceps, 4-/5 tibialis anterior, and 4-/5 gastrocnemius bilaterally. REFLEXES: 1+ at biceps, triceps, brachioradialis, absent patella and absent Achilles bilaterally. Flexor plantar responses bilaterally. SENSORY: Intact to LT without extinction to double simultaneous stimuli. Decreased vibration in BLEs up to the thighs, normal in BUEs. Normal temperature throughout. COORDINATION: No dysmetria or ataxia on [id number] bilaterally. Normal Jamilah bilaterally. GAIT: deferred given spinal cord lesion Results & Data Vital Signs (Past 12 Hours) Vital Signs Temp Pulse Resp BP Pulse Ox 03/03/19 07:03 36.9 C 79 16 114/56 L 97 03/03/19 03:22 36.6 C 68 16 109/66 98 03/03/19 00:35 36.8 C 71 20 104/61 98 PG Care Time/CCT Total # of Minutes Spent Total Time Spent with Patient: Total time spent is greater than 50% in coordination of care (as documented) at patient's floor/unit and/or counseling patient:
--- NOTE | 2019-03-03 16:42 | Billing Data ---
Date of Service March 03, 2019 Coding Level of Care Code 85907 Subseq Hosp Care Lvl 3
[2019-03-03] MEDS: ENOXAPARIN INJ 40 MG/0.4 ML SYR SQ SCH (20:28)
[2019-03-04] MEDS: NSS + 20MEQ KCL 20 MEQ/1,000 ML BAG IV SCH ×2 (01:42→20:24)
[2019-03-04 06:50] LABS: Creatinine Clr Calc Pharmacy 105.5 ml/min
[2019-03-04] MEDS: MULTIVITAMIN TAB PO SCH (07:56)
[2019-03-04] MEDS: CYANOCOBALAMIN 1000 MCG/ML VIAL IM SCH (07:56)
[2019-03-04] MEDS: THIAMINE HCL 100 MG TAB PO SCH (07:56)
--- NOTE | 2019-03-04 09:27 | Hospitalist Progress Note ---
Date of Service March 04, 2019 Assessment & Plan (1) Bilateral leg weakness: Stacy is an otherwise well 23 yo female who was admitted on 03/01/19 for evaluation of inability to ambulate and bilateral lower extremity paresthesias. Her neurologic exam has improved since admission, yet she persistently cannot to bear weight on LE. Bilateral leg weakness - likely secondary to chronic nitrous oxide (whippit) use and subsequent depletion of Vitamin B12 stores - brain MRI showing no brain lesions but demyelinating lesion of spinal cord identified; neurology consulted; appreciate recs - exam has improved since arrival (strength and sensation) - counseled patient to abstain from further nitrous oxide use - supplementing Vitamin B12 with 1,000mcg, IM daily doses x2 weeks (currently on day 07/02), then once weekly thereafter, and ultimate transition PO - PT/OT ordered; reiterated importance of participation/effort with patient -had a long discussion today with patient regarding risks/benefits of traveling to [place]. advised her to wait until she is able to walk on her own, as she would otherwise need an aide with her to manage her wheelchair and assist her in the restroom on the airplane. this could be difficult on such as long flight. additionally, she needs to consistently be taking the Vit 12 injections - could consider teaching her how to inject herself and sending her home with vial of B12. she deferred being tasked with learning how to inject herself at this time and agrees to having a nurse do it either while in the hospital or in outpatient setting - she will follow up with neurology as an outpatient in 4-6 weeks Vitamin B12 deficiency - level 147 on admission - supplementation as above Macrocytic Anemia -Hgb 10.7, MCV 104.9 on admission -likely secondary to vitamin B 12 deficiency; supplementation as above Depression - likely chronic, per history. - patient without SI/HI at this time - would likely benefit from CBT/SSRI use, but patient declines at this time Alcohol Use Disorder -counseled patient to minimize ETOH consumption -supplementing with thiamine Dispo: PCU to med/surg today Diet: regular DVT PPx: lovenox 40mg, SQ, daily; bilateral SCDs ordered Code: FULL code (2) Ataxia: (3) Nitrous oxide overdose: (4) Macrocytic anemia with vitamin B12 deficiency: (5) Alcohol abuse: Supervising Physician Co-Signing Physician Notes I personally examined the patient and verified all childs points of history and exam, discussed case, and agree with decision making with Dr Long. feeling the same. discussed next steps in detail. discussed need for ongoing IM b12, and that if pt is plannning on return to [place] the best safety net may be to teach her to self-admin B12 so that when she is transitioning between docs/systems/countries she would not risk missing critical dosing of B12 Vitals noted, in general she is in no distress. HEENT normocephalic atraumatic mucous membranes are moist. Breathing is unlabored no accessory muscle use good effort. Skin shows no rashes no pallor or icterus. Weakness/ataxia/nitrous oxide-induced B12 deficiency mediated spinal cord degenerationcontinue B12 supplementation and nitrous cessation, PT/OT eval and treat. ask nursing to teach to self admin. unclear if she'll need rehab - right now showing little progress (expected, given the slow nature of nerve healing); uncertain if family will accompany her back to [place]. educated extensively and answered to the best of my ability. Macrocytic anemiarelated to B12 as as abovecontinue to supplement B12. Stable from medical Subjective No acute events overnight. Feels about the same as yesterday. She is not in any pain. Eating and drinking. Did participate in PT yesterday, although apathetically. Asks whether she would be able to fly home to [place] - her parents want her to come home. When asked about why she was using whippits, she answers that she was told they would make her feel happy. She admits to preceding depressed mood and use of whippits as attempt to self medicate. She identifies a break up two years ago as a source of sadness. While she has friends here at [facility], the friends she was closest to graduated last year. She intends to take the GRE with hopes of getting into business school at [employer] following her graduation from [employer] in the upcoming springester. The application process to grad school is a big stressor for her. She says she is not interested in speaking with a counselor. She is not interested in medication therapy for depression at this time. Denies thoughts of self harm or SI. No HI. No history of previous suicide attempts Review of Systems Review of Systems: All systems reviewed & are unremarkable except as noted in HPI & below Physical Exam Constitutional: WD/WN, vitals as above + language barrier and + disheveled; + not well groomed Eyes: PERRL, conjunctivae normal, anicteric sclerae EOM intact bilaterally (without nystagmus) ENMT: external ear and nose normal, oropharynx normal Neck: normal visual inspection Respiratory: normal respiratory effort, lungs clear to auscultation Auscultation: no crackles, no rales, no rhonchi and no wheezes Cardiovascular: RRR, no murmur, no edema Heart Sounds: normal S1 and normal S2 Gastrointestinal (Abdomen): normal bowel sounds, soft, nontender, no hepatosplenomegaly Skin: no rashes, warm and dry Neurologic: CN's II-XI intact bilaterally Speech / Cognition: normal speech Coordination: normal [id number] test and normal rapid alternating movements Sensation intact to gross touch in bilateral upper and lower extremities. Vibratory sensation not tested. Muscle tone and bulk normal throughout. Strength 5/5 in triceps, biceps, wrist extension and flexion, finger abduction, and blister pack operator in bilateral upper extremities. 4/5 with ankle plantar and dorsiflexion, quadriceps extension, hamstring flexion in bilateral lower extremities. Gait not tested. Psychiatric: Orientation: oriented x 3 Results & Data Vital Signs (Past 12 Hours) Vital Signs Temp Pulse Resp BP BP Pulse Ox 03/04/19 07:23 36.7 C 65 17 95/65 L 90 03/03/19 22:56 37.2 C 79 16 95/60 L 96 Resident Activity Tracking Resident Involvement: Resident Care Provided Care Provided: Adult Hospital Medicine (1) Nitrous oxide overdose Encounter type: initial encounter Injury intent: undetermined intent Qualified Code(s): T41.0X4A - Poisoning by inhaled anesthetics, undetermined, initial encounter
--- NOTE | 2019-03-04 18:03 | Billing Data ---
Date of Service March 04, 2019 Coding Level of Care Code 06230 Subseq Hosp Care Lvl 3
[2019-03-04] MEDS: ENOXAPARIN INJ 40 MG/0.4 ML SYR SQ SCH (20:25)
[2019-03-05] MEDS: CYANOCOBALAMIN 1000 MCG/ML VIAL IM SCH (09:08)
[2019-03-05] MEDS: THIAMINE HCL 100 MG TAB PO SCH (09:08)
[2019-03-05] MEDS: MULTIVITAMIN TAB PO SCH (09:08)
[2019-03-05] MEDS: NSS + 20MEQ KCL 20 MEQ/1,000 ML BAG IV SCH (10:19)
--- NOTE | 2019-03-05 13:20 | Medical Student Progress Note ---
Date of Service March 05, 2019 Assessment & Plan (1) Bilateral leg weakness: Patient is a 23 year old female presenting with bilateral leg weakness and numbness secondary to inhaled NO use and consequent vitamin B12 deficiency. 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 Given high cord lesion - to monitor for dysautonomia Recommends continuing current B12 treatment (1000 mcg daily IM injection) for two weeks and then eventually converting to oral. Recommends obtaining serum NMO antibody (aquaporin 4 antibody). Follow-up with outpt neuro in 4-6 weeks. -Patient should continue working with PT/OT. Per their recommendation, will decide whether to transfer to a rehab facility or if she can go home and pursue outpatient therapy. -Patient also endorses "trouble going to the bathroom." Is unclear if this is due to immobility or urinary retention. She has a villanueva catheter in place. Severe Vitamin B12 deficiency On admission, B12 was 147 (normal range 211-911). Continue current B12 treatment (1000 mcg daily IM injection) and eventually get the patient to oral supplementation. NO inhalant use disorder -encouraged quitting use -consider outpatient counselling. -to screen for underlying depression/anxiety and treat Asymptomatic bacteriuria -UA done on 03/01 positive for nitrites and bacteria (2+) -UC done on 03/01 has come back positive for E. coli. -Patient is asymptomatic, but she also is having trouble with sensation and has a Villanueva catheter in place, so it is hard to tell if truly asymptomatic. -Consider treating if symptoms develop. FEN: Stop IVF Normal diet DVT Prophylaxis: continue Lovanox Code Status: full code Disposition: anticipate discharge pending PT/OT eval Present on Admission?: Yes (2) Vitamin B 12 deficiency: Present on Admission?: Yes (3) Urine culture positive: Present on Admission?: Yes Supervising Attestation Medical student Supervision Note: I independently interviewed and examined the patient and verified the childs history and physical, reviewed labs and image studies, discussed the case with Pedro Carreon and agree with the findings and care plan. Continue vitamin B12 replacement. Awaiting disposition for rehab. Subjective Patient was admitted on 03/01 with bilateral leg weakness and numbness. She has been having on and off leg pain for a few months, but the weakness/numbness started about 1 month ago. Patient relates numbness from the chest down, with her arms spared. She reports that she has diminished sensation (with equal diminishment bilaterally) of the trunk and lower extremities. She continues to feel that her legs are too weak for her to walk. She feels as though she has not made much progress since she first arrived. She reports that her mood is "fine." Review of Systems Neurologic: as per Subjective / HPI Physical Exam Constitutional: WD/WN, vitals as above Musculoskeletal: Extremities: + abnormal strength (leg extension 4/5, dorsiflexion 4/5, plantar flexion 4/5) Neurologic: Diminished sensation to touch of legs and trunk bilaterally Psychiatric: Orientation: alert and oriented x 3 Apperance: + disheveled Eye Contact: + fair eye contact Suicidal Thoughts: denies suicidal thoughts Genitourinary: has a urinary catheter in place Results & Data Vital Signs (Past 12 Hours) Vital Signs Temp Pulse Resp BP Pulse Ox 03/05/19 07:53 36.8 C 60 20 87/55 L 97
[2019-03-05] MEDS: ENOXAPARIN INJ 40 MG/0.4 ML SYR SQ SCH (20:51)
[2019-03-06] MEDS: MULTIVITAMIN TAB PO SCH (09:26)
[2019-03-06] MEDS: THIAMINE HCL 100 MG TAB PO SCH (09:26)
[2019-03-06] MEDS: CYANOCOBALAMIN 1000 MCG/ML VIAL IM SCH (09:27)
--- NOTE | 2019-03-06 09:47 | Medical Student Progress Note ---
Date of Service March 06, 2019 Assessment & Plan (1) Bilateral leg weakness: Patient is a 23 year old female presenting with bilateral leg weakness and numbness secondary to inhaled NO use and consequent vitamin B12 deficiency. 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 -Given high cord lesion - to monitor for dysautonomia -Recommends continuing current B12 treatment (1000 mcg daily IM injection) for two weeks and then eventually converting to oral. -Recommends obtaining serum NMO antibody (aquaporin 4 antibody). -Follow-up with outpt neuro in 4-6 weeks. -Patient should continue working with PT/OT. Per their recommendation, will pursue inpatient rehabilitation options (unsure if her insurance will cover this) -Patient more hopeful of her diagnosis and working harder with PT/OT today. -Patient also endorses "trouble going to the bathroom." Is unclear if this is due to immobility or urinary retention. She has a villanueva catheter in place. Severe Vitamin B12 deficiency -On admission, B12 was 147 (normal range 211-911). Continue current B12 treatment (1000 mcg daily IM injection) and eventually get the patient to oral supplementation. Asymptomatic bacteriuria -UA done on 03/01 positive for nitrites and bacteria (2+) -UC done on 03/01 has come back positive for E. coli. -Patient is asymptomatic, but she also is having trouble with sensation and has a Villanueva catheter in place, so it is hard to tell if truly asymptomatic. -Consider treating if symptoms develop. Nitrous oxide inhalant use disorder -encouraged quitting use -consider outpatient counselling -possible underlying depression/anxiety and treat. patient denies symptoms - possibly due to cultural reason. Depression -concerns about depression based on patient history -endorses depressed mood over the past two years after a break-up -reports self-medication with nitrous oxide inhalants and alcohol -currently says mood is good, no suicidal ideation, continue to monitor -encouraged outpatient therapy or medication management, but patient is not interested FEN/GI: Normal diet DVT Prophylaxis: continue Lovanox Code Status: full Disposition: anticipate discharge to inpatient rehab once PT/OT considers her stable enough -also of note, patient has concerns about student visa status. Case management assisting. Present on Admission?: Yes (2) Vitamin B 12 deficiency: Present on Admission?: Yes (3) Depression: Present on Admission?: Yes (4) Poisoning by nitrous oxide: Present on Admission?: Yes (5) Asymptomatic bacteriuria: Present on Admission?: Yes Supervising Attestation Medical student Supervision Note: I independently interviewed and examined the patient and verified the childs history and physical, reviewed labs and image studies, discussed the case with Pedro Carreon and agree with the findings and care plan. Subjective Patient was admitted on 03/01 with bilateral leg weakness and numbness. She continues to report numbness from the chest down, with diminished sensation (with equal diminishment bilaterally) of the trunk and lower extremities. She continues to feel that her legs are too weak for her to walk. She still feels as though she has not made much progress. She reports that her mood is "very happy." Review of Systems Neurologic: + localized weakness (weakness in both legs) and + loss of sensation (trunk, BLE) unable to walk Psychiatric: no suicidal ideation Physical Exam Constitutional: WD/WN, vitals as above + disheveled; no acute distress Musculoskeletal: Extremities: strength 5/5 throughout Neurologic: Motor/Sensory: + sensory deficit (loss of sensation on trunk, BLE) Results & Data Vital Signs (Past 12 Hours) Vital Signs Temp Pulse Resp BP Pulse Ox 03/06/19 06:35 36.8 C 59 L 16 89/56 L 97 03/05/19 23:49 36.8 C 87 20 121/56 L 93 Diagnostic Findings KUB IMPRESSION (03/06/19): 1. An enteric tube is unchanged in position. 2. There is no radiographic evidence of small bowel obstruction. 3. Distention of the stomach has modestly improved from previous.
--- NOTE | 2019-03-06 09:59 | Hospitalist Progress Note ---
Date of Service March 06, 2019 Results & Data Vital Signs (Past 12 Hours) Vital Signs Temp Pulse Resp BP Pulse Ox 03/06/19 06:35 36.8 C 59 L 16 89/56 L 97 03/05/19 23:49 36.8 C 87 20 121/56 L 93
[2019-03-06] MEDS: ENOXAPARIN INJ 40 MG/0.4 ML SYR SQ SCH (20:08)
[2019-03-07 06:24] LABS: Creatinine Clr Calc Pharmacy 109.6 ml/min; Est GFR (Non-African American) 112.1
[2019-03-07] MEDS: CYANOCOBALAMIN 1000 MCG/ML VIAL IM SCH (08:22)
[2019-03-07] MEDS: MULTIVITAMIN TAB PO SCH (08:22)
[2019-03-07] MEDS: THIAMINE HCL 100 MG TAB PO SCH (08:22)
--- NOTE | 2019-03-07 09:08 | Medical Student Progress Note ---
Date of Service March 07, 2019 Assessment & Plan (1) Bilateral leg weakness: Patient is a 23 year old female presenting with bilateral leg weakness and numbness secondary to inhaled NO use and consequent vitamin B12 deficiency. 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 -Given high cord lesion - to monitor for dysautonomia -Recommends continuing current B12 treatment (1000 mcg daily IM injection) fo r two weeks and then eventually converting to oral. -Recommends obtaining serum NMO antibody (aquaporin 4 antibody). -Follow-up with outpt neuro in 4-6 weeks. -Patient more hopeful of her diagnosis and working harder with PT/OT. Was able to practice standing almost 6 times yesterday. PT continues to recommend discharge to an inpatient rehab facility. -Case management is assisting--[facility] has accepted her. -Patient also endorses "trouble going to the bathroom." Is unclear if this is due to immobility or urinary retention. She has a villanueva catheter in place. Severe Vitamin B12 deficiency -On admission, B12 was 147 (normal range 211-911). -Continue current B12 treatment (1000 mcg daily IM injection), day 10/01, and eventually get the patient to oral supplementation. Nitrous oxide inhalant use disorder -encouraged quitting use -consider outpatient counselling Depression -concerns about depression based on patient history -endorses depressed mood over the past two years after a break-up -reports self-medication with nitrous oxide inhalants and alcohol -currently says mood is good, no suicidal ideation, continue to monitor -encouraged outpatient therapy or medication management, but patient is not interested, possibly for cultural reasons Asymptomatic bacteriuria -UA done on 03/01 positive for nitrites and bacteria (2+) -UC done on 03/01 has come back positive for E. coli. -Patient is asymptomatic, but she also is having trouble with sensation and has a Villanueva catheter in place, so it is hard to tell if truly asymptomatic. -Consider treating if symptoms develop. FEN/GI: Normal diet DVT Prophylaxis: continue Lovanox Code Status: full Disposition: Will be discharged to [facility] -also of note, patient has concerns about student visa status. Case management assisting. (2) Vitamin B 12 deficiency: Present on Admission?: Yes (3) Poisoning by nitrous oxide: Present on Admission?: Yes (4) Depression: Present on Admission?: No (5) Asymptomatic bacteriuria: Present on Admission?: Yes Supervising Attestation Medical Student Supervision Note: I independently interviewed and examined the patient and verified the childs history and physical, reviewed labs and image studies, discussed the case with Pedro Diane agree with the findings and care plan. continue PT/OT. awaiting rehab placement consider d/c villanueva to avoid infection. Subjective Patient was admitted on 03/01 with bilateral leg weakness and numbness. She continues to report numbness from the chest down, with diminished sensation (with equal diminishment bilaterally) of the trunk and lower extremities. She continues to feel that her legs are too weak for her to walk and that her loss of sensation has not improved. She reports today that her mood is "good." Review of Systems Constitutional: no fever and no chills Respiratory: no cough and no dyspnea Cardiovascular: no chest pain and no dyspnea Gastrointestinal: no nausea and no vomiting Genitourinary: no dysuria Villanueva catheter in place Neurologic: + localized weakness (weakness in both legs) and + loss of sensation (trunk, BLE) unable to walk Physical Exam Constitutional: WD/WN, vitals as above + disheveled; no acute distress difficult to arouse this morning Musculoskeletal: Extremities: strength 5/5 throughout Neurologic: Motor/Sensory: + sensory deficit (loss of sensation on trunk, BLE) Psychiatric: Orientation: alert and oriented x 3 Apperance: + disheveled Eye Contact: + fair eye contact Suicidal Thoughts: denies suicidal thoughts Genitourinary: villanueva catheter in place Results & Data Vital Signs (Past 12 Hours) Vital Signs Temp Pulse Resp BP Pulse Ox 03/07/19 06:15 36.7 C 73 19 104/69 96 03/06/19 23:56 36.8 C 81 19 101/67 97
--- NOTE | 2019-03-07 18:22 | Discharge Summary ---
Date of Service March 07, 2019 Admission HPI Per Admitting Provider 23 years old female with no significant past medical history was brought to the ED by EMS complaining of bilateral lower extremity weakness. Patient appears to be dissociated from reality despite of her high academic achievement as a student in [employer], she is in her last year of college. I was surprised with her lack of concerned about her lower extremity weakness that developed very slowly over a period of few months. Patient admitted to [facility] on and off for the last 2 years. Stated that she was introduced to the substance by her friend after she was depressed when she broke up with her boyfriend. Also admitted to drinking alcohol at least 3 times to 4 times a week. She stated that few months ago she started having numbness in hands both lower extremities that slowly progressed to weakness. The amount of 4 beats she admitted to take is about 3 to 5 boxes/day, every box contains about 24 can. She stated that she stopped using it about 2 weeks ago, but paramedics stated that her apartment was full of what pets around her. Her initial lumbar MRI was within normal limits. Vitamin B12 level was 147, her MCV was elevated and hemoglobin was low indicating severe vitamin B12 deficiency. Poison control was called and recommended vitamin B12 replacement Admission Exam Per Admitting Provider Physical examination General surprisingly appears to be calm patient appears to be comfortable, not in acute distress HEENT: Atraumatic , normocephalic /no jaundice /no pallor /anicteric /no dry mucous membrane /normal external ear inspection Neck: Supple /no swelling /central trach Heart: S1/S2 normal/regular rate and rhythm/no gallop /no rub /no murmur Lungs: Clear to auscultation bilaterally/normal chest with expansion/no rhonchi/no rales/no wheezing/no use of accessory muscles of respiration Abdomen: Soft/nontender/no guarding/no rebound/no organomegaly/no pulsatile mass Musculoskeletal: No swelling/no edema/no tenderness/normal range of motion Neuro exam: Awake alert oriented 3/cranial nerves II through XII appear to be intact/sensation intact but she said that is slightly numb in her both feet/very ataxic, reflexes are decreased, severe cerebellar extrapyramidal symptoms, strength in lower extremities is 2/5 Psychiatric evaluation: No depressed mood/normal affect Skin: No rash on exposed skin area/no erythema Extremity: Normal pulse/no pitting edema/no clubbing or cyanosis Endocrine/lymphatic: No obvious lymphadenopathy /no lymphedema Principal Diagnosis Ataxia Discharge Exam Constitutional well developed and well nourished Respiratory normal respiratory effort, lungs clear to auscultation Cardiovascular RRR, no murmur, no edema Gastrointestinal (Abdomen) normal bowel sounds, soft, nontender, no hepatosplenomegaly Musculoskeletal Extremities: + limited ROM of extremities (LE b/l) and + abnormal strength (Weakness in LE noted most significantly when patient attempting to stand) Gait: + abnormal gait (ataxia ) Neurologic patellar DTR's 2+ bilat, sensation intact Psychiatric A+Ox3, euthymic affect Discharge Data Allergies Allergy/AdvReac Type Severity Reaction Status Date / Time No Known Allergies Allergy Unverified 03/01/19 08:52 Consultations 03/01/19 15:48 ED Decision to Admit Stat 03/01/19 18:06 Consult Neurology Routine 03/06/19 14:31 Consult Case Management - Discharge Planning Routine Ordered Studies 03/01/19 09:35 MR lumbar spine wo con Stat 03/01/19 16:58 MR cervical spine wo/w con Stat MR thoracic spine wo/w con Stat 03/01/19 17:03 MR brain wo/w con Stat Hospital Course (1) Ataxia: Patient is a 23 year old female presenting with bilateral leg weakness and numbness secondary to inhaled NO use and consequent vitamin B12 deficiency. 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 -Given high cord lesion - to monitor for dysautonomia -Recommends continuing current B12 treatment (1000 mcg daily IM injection) for two weeks and then eventually converting to oral. -Recommends obtaining serum NMO antibody (aquaporin 4 antibody). -Follow-up with outpt neuro in 4-6 weeks. -going to [facility] for acute rehab -Patient also endorses "trouble going to the bathroom." Is unclear if this is due to immobility or urinary retention. She has a villanueva catheter which was left in place at the time of discharge. Severe Vitamin B12 deficiency -On admission, B12 was 147 (normal range 211-911). -Continued current B12 treatment (1000 mcg daily IM injection), day 7/14, and eventually get the patient to oral supplementation. Nitrous oxide inhalant use disorder -encouraged quitting use -consider outpatient counselling Depression -concerns about depression based on patient history -endorses depressed mood over the past two years after a break-up -reports self-medication with nitrous oxide inhalants and alcohol -currently says mood is good, no suicidal ideation, continue to monitor -encouraged outpatient therapy or medication management, but patient is not interested, possibly for cultural reasons Asymptomatic bacteriuria -UA done on 03/01 positive for nitrites and bacteria (2+) -UC done on 03/01 has come back positive for E. coli. -Patient stay asymptomatic through the hospital stay. -Consider treating if symptoms develop. FEN/GI: Normal diet DVT Prophylaxis: continued Lovanox while inpatient Code Status: full Disposition: Will be discharged to [facility] (2) Bilateral leg weakness: (3) Vitamin B 12 deficiency: (4) Nitrous oxide overdose: (5) Poisoning by nitrous oxide: (6) Subacute combined degeneration of spinal cord: (7) Asymptomatic bacteriuria: (8) Depression: Total Time Total Time Spent Total Time Spent (In Minutes): see attending attestation Discharge Plan Discharge Items Patient Disposition: Transfer Inpatient Rehab Fac Reason For Visit: ATAXIA Discharge Diagnosis: Ataxia secondary to B12 deficiency secondary to Nitrous Oxide use disorder Condition on Discharge: Good Activity: Per Instructions section Non-emergency contact: Primary Care Provider and Neurologist Call non-emergency contact if: you have any medication questions and your symptoms worsen Follow-up/Referrals: Kandy Houston MD [Physician] - 04/12/19 9:45 am (Please, follow up at [facility] Neurology Office with Dr. Houston on April 12 at 10:00 am (arrive 9:45 am). *The office is located at [address] in [place]. If you need to change this appointment, call the office at [phone].) Diet: Regular Addtl Attending Provider Instructions: Bilateral leg weakness: Patient is a 23 year old female presenting with bilateral leg weakness and numbness secondary to inhaled NO use and consequent vitamin B12 deficiency. 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 -Given high cord lesion - to monitor for dysautonomia -Recommends continuing current B12 treatment (1000 mcg daily IM injection) for two weeks and then eventually converting to oral. Currently on day 10/01. Begin PO B12 after completing IM course. -Recommends obtaining serum NMO antibody (aquaporin 4 antibody). Pending at discharge. -Follow-up with outpt neuro in 4-6 weeks. -Patient also endorses "trouble going to the bathroom." Is unclear if this is due to immobility or urinary retention. She has a villanueva catheter in place. Severe Vitamin B12 deficiency -On admission, B12 was 147 (normal range 211-911). -Continue current B12 treatment (1000 mcg daily IM injection), day 10/01, and eventually get the patient to oral supplementation. Nitrous oxide inhalant use disorder -encouraged quitting use -consider outpatient counselling -possible underlying depression/anxiety. Refuses treatment. Depression -concerns about depression based on patient history -endorses depressed mood over the past two years after a break-up -reports self-medication with nitrous oxide inhalants and alcohol -currently says mood is good, no suicidal ideation, continue to monitor -encouraged outpatient therapy or medication management, but patient is not interested. Asymptomatic bacteriuria -UA done on 03/01 positive for nitrites and bacteria (2+) -UC done on 03/01 has come back positive for E. coli. -Patient is asymptomatic, but she also is having trouble with sensation and has a Villanueva catheter in place, so it is hard to tell if truly asymptomatic. -Consider treating if symptoms develop. Pending Studies at Discharge: No Stand-Alone Forms: My [facility] Skilled Items Patient informed of condition?: Yes DNR: No Discharge Level of Care: Acute rehab Communicable Disease: No Discharge Prognosis: Stable Lines: None Urinary Catheter: Yes Medications and DC Order Prescriptions: New multivitamin [Daily-Marcie] Tablet 1 tab PO QAM 30 Days Qty: 30 RF: 0 acetaminophen [Mapap (acetaminophen)] 325 mg Tablet 650 mg PO Q4H PRN (Reason: pain) 30 Days Qty: 30 RF: 0 polyethylene glycol 3350 [Miralax] 17 gram Powder In Packet 17 g PO DAILY PRN (Reason: constipation) 30 Days Qty: 30 RF: 0 thiamine HCl (vitamin B1) [Vitamin B-1] 100 mg Tablet 100 mg PO QAM 30 Days Qty: 30 RF: 0 magnesium hydroxide [Milk of Magnesia] 400 mg/5 mL Suspension 30 ml PO Q12H PRN (Reason: constipation) 30 Days Qty: 3000 RF: 0 MAG-AL 200-200 mg/5 mL Suspension 15 ml PO Q4H PRN (Reason: constipation) 30 Days Qty: 3000 RF: 0 ondansetron HCl [Zofran] 4 mg tablet 4 mg PO DAILY PRN (Reason: nausea and vomiting) 30 Days Qty: 30 RF: 0 cyanocobalamin (vitamin B-12) 1,000 mcg/mL solution 1,000 mcg IM DAILY 7 Days Qty: 7 RF: 0 cyanocobalamin (vitamin B-12) 1,000 mcg tablet 1,000 mcg PO DAILY 30 Days Qty: 30 RF: 0 No Action No Known Home Medications RF: 0 Discharge Orders: Discharge Order (Routine); Ordered 03/07/19 Ordered By: Gomez Duque Admission Data Admit Date/Time: 03/01/19 18:00 Attending Provider: Suzanne Ndiaye Admit Provider: Gianfranco Lewis Primary Care Provider: Charles Stratton Other Providers: Maryjane Montano ; Kandy Houston ; Gianfranco Lewis ; [facility] Other Interventions: Discharge Summary Assessment (RN) Last Done: 03/07/19 13:42 DC Date/Time DO NOT enter until pt leaves facility: 03/07/19 15:30 Supervising Physician Co-Signing Physician Notes Resident Physician Supervision Note: I independently interviewed and examined the patient and verified the childs history and physical, reviewed labs and image studies, discussed the case with the resident Dr. Adamson and agree with the findings and care plan.
== END 2019-03-07 15:30 | DRG 641 ==
LOC: ED 08:09 → 2E 18:00 → SUATTDRO 18:00 → 2E 19:10 → 4W 03-03 13:01